=== PATIENT | male | born 1960 | race Caucasian/White ===

== ENCOUNTER → 2018-05-25 13:22 | Outpatient (CLI) | payer OTHER, SELFPAY | PROVIDERS: Visit Provider Family Medicine | DX: I87.2 Venous insufficiency (chronic) (peripheral) (principal); L97.525 Non-pressure chronic ulcer of other part of left foot with muscle involvement without evidence of necrosis; L97.322 Non-pressure chronic ulcer of left ankle with fat layer exposed; L97.522 Non-pressure chronic ulcer of other part of left foot with fat layer exposed; L97.812 Non-pressure chronic ulcer of other part of right lower leg with fat layer exposed | CPT/HCPCS: 97597; 97598; 99213 ==

== ENCOUNTER → 2018-05-27 14:31 | Outpatient (CLI) | payer OTHER, SELFPAY | PROVIDERS: Visit Provider Family Medicine | DX: I87.2 Venous insufficiency (chronic) (peripheral) (principal); L97.525 Non-pressure chronic ulcer of other part of left foot with muscle involvement without evidence of necrosis; L97.812 Non-pressure chronic ulcer of other part of right lower leg with fat layer exposed; L97.322 Non-pressure chronic ulcer of left ankle with fat layer exposed | CPT/HCPCS: 99213 ==

== ENCOUNTER → 2018-05-29 14:17 | Outpatient (CLI) | payer OTHER, SELFPAY | PROVIDERS: Visit Provider Family Medicine | DX: I87.2 Venous insufficiency (chronic) (peripheral) (principal); L97.822 Non-pressure chronic ulcer of other part of left lower leg with fat layer exposed; L97.312 Non-pressure chronic ulcer of right ankle with fat layer exposed | CPT/HCPCS: 29581 ==

== ENCOUNTER → 2018-06-01 13:13 | Outpatient (CLI) | payer OTHER, SELFPAY | PROVIDERS: Visit Provider Family Medicine | DX: I87.2 Venous insufficiency (chronic) (peripheral) (principal); L97.522 Non-pressure chronic ulcer of other part of left foot with fat layer exposed; L97.322 Non-pressure chronic ulcer of left ankle with fat layer exposed; L97.812 Non-pressure chronic ulcer of other part of right lower leg with fat layer exposed | CPT/HCPCS: 97597; 97598; 99212; 99213 ==

== ENCOUNTER → 2018-06-03 10:15 | Outpatient (CLI) | payer OTHER, SELFPAY | PROVIDERS: Visit Provider Family Medicine | DX: I87.2 Venous insufficiency (chronic) (peripheral) (principal); L97.811 Non-pressure chronic ulcer of other part of right lower leg limited to breakdown of skin; L97.521 Non-pressure chronic ulcer of other part of left foot limited to breakdown of skin | CPT/HCPCS: 29581 ==

== ENCOUNTER → 2018-06-05 10:11 | Outpatient (CLI) | payer OTHER, SELFPAY | PROVIDERS: Visit Provider Family Medicine | DX: I87.2 Venous insufficiency (chronic) (peripheral) (principal); L97.811 Non-pressure chronic ulcer of other part of right lower leg limited to breakdown of skin; L97.321 Non-pressure chronic ulcer of left ankle limited to breakdown of skin | CPT/HCPCS: 29581; 87070; 87075; 87077; 87186; 87205 ==

== ENCOUNTER → 2018-06-08 10:27 | Outpatient (CLI) | payer OTHER, SELFPAY | PROVIDERS: Visit Provider Podiatrist Primary Podiatric Medicine | DX: I87.2 Venous insufficiency (chronic) (peripheral) (principal); I89.0 Lymphedema, not elsewhere classified; E11.622 Type 2 diabetes mellitus with other skin ulcer; E11.40 Type 2 diabetes mellitus with diabetic neuropathy, unspecified; L97.521 Non-pressure chronic ulcer of other part of left foot limited to breakdown of skin; L97.821 Non-pressure chronic ulcer of other part of left lower leg limited to breakdown of skin; L97.811 Non-pressure chronic ulcer of other part of right lower leg limited to breakdown of skin | CPT/HCPCS: 99213 ==

== ENCOUNTER → 2018-06-10 11:03 | Outpatient (CLI) | payer OTHER, SELFPAY | PROVIDERS: Visit Provider Family Medicine | DX: I87.2 Venous insufficiency (chronic) (peripheral) (principal); L97.511 Non-pressure chronic ulcer of other part of right foot limited to breakdown of skin; L97.321 Non-pressure chronic ulcer of left ankle limited to breakdown of skin; L97.811 Non-pressure chronic ulcer of other part of right lower leg limited to breakdown of skin | CPT/HCPCS: 29581 ==

== ENCOUNTER → 2018-06-12 10:18 | Outpatient (CLI) | payer OTHER, SELFPAY | PROVIDERS: Visit Provider Family Medicine | DX: I87.2 Venous insufficiency (chronic) (peripheral) (principal); L97.812 Non-pressure chronic ulcer of other part of right lower leg with fat layer exposed; L97.322 Non-pressure chronic ulcer of left ankle with fat layer exposed; L97.522 Non-pressure chronic ulcer of other part of left foot with fat layer exposed | CPT/HCPCS: 99214 ==

== ENCOUNTER → 2018-06-15 15:06 | Outpatient (CLI) | payer OTHER, SELFPAY | PROVIDERS: Visit Provider Podiatrist Primary Podiatric Medicine | DX: I87.2 Venous insufficiency (chronic) (peripheral) (principal); L97.322 Non-pressure chronic ulcer of left ankle with fat layer exposed; L97.812 Non-pressure chronic ulcer of other part of right lower leg with fat layer exposed; L97.522 Non-pressure chronic ulcer of other part of left foot with fat layer exposed | CPT/HCPCS: 97597; 99201 ==

== ENCOUNTER → 2018-06-23 15:25 | Outpatient (CLI) | payer OTHER, SELFPAY | PROVIDERS: Visit Provider Family Medicine | DX: I87.2 Venous insufficiency (chronic) (peripheral) (principal); L97.212 Non-pressure chronic ulcer of right calf with fat layer exposed; L97.322 Non-pressure chronic ulcer of left ankle with fat layer exposed; L97.522 Non-pressure chronic ulcer of other part of left foot with fat layer exposed; D64.9 Anemia, unspecified | CPT/HCPCS: 99214; 99215 ==

== ENCOUNTER → 2018-06-24 15:35 | Outpatient (CLI) | payer OTHER, SELFPAY ==
[2018-06-24 18:19] LABS: Add Manual Diff / Slide Review NO; Basophils Absolute Auto 0 /uL (0-100); Basophils Percent Auto 0.3 % (0-2); Eosinophils Absolute Auto 100 /uL (0-450); Eosinophils Percent Auto 0.7 % (2-4); Hematocrit 38.1 % (41-53); Hemoglobin 11.7 g/dL (13.5-17.5); Lymphocytes Absolute Auto 900 /uL (1100-4500); Lymphocytes Percent Auto 8.3 % (25-40); Mean Corpuscular HGB Conc 30.8 % (30-36); Mean Corpuscular Hemoglobin 24.7 PG (26-34); Mean Corpuscular Volume 80.2 fL (80-100); Monocytes Absolute Auto 900 /uL (0-900); Monocytes Percent Auto 8.1 % (3-14); Neutrophils Absolute Auto 9400 /uL (1500-7000); Neutrophils Percent Auto 82.6 % (50-75); Platelet Count 335 X10^3/uL (150-400); Red Blood Cell Count 4.75 X10^6/uL (4.5-5.9); Red Cell Distribution Width 22.7 % (11.6-14.8); White Blood Cell Count 11.4 X10^3/uL (4.5-11.0)
[2018-06-24 18:55] LABS: Erythrocyte Sedimentation Rate 14 MM/HR (0-15)
[2018-06-24 19:08] LABS: HEMOLYSIS < 15 (0-50); Iron 27 ug/dL (49-181)
[2018-06-24 19:10] LABS: Hemoglobin A1C% w Est Avg Glu 7.1 % (4.0-6.0)
[2018-06-24 19:19] LABS: Percent Iron Saturation 10 % (20-50); Total Iron Binding Capacity 278 ug/dL (261-462); Transferrin 197 mg/dL (206-381)
[2018-06-24 19:32] LABS: Anisocytosis 2+
[2018-06-24 19:33] LABS: Hypochromasia 2+
[2018-06-24 19:45] LABS: Alanine Aminotransferase 21 IU/L (21-72); Albumin 3.8 g/dL (3.5-5.0); Albumin Globulin Ratio 0.9 (1.0-2.8); Alkaline Phosphatase 104 U/L (38-126); Aspartate Aminotransferase 15 IU/L (17-59); BUN Creatinine Ratio 19.2 (6-22); Bilirubin Total 0.4 mg/dL (0.2-1.3); Blood Urea Nitrogen 25 mg/dL (9-20); Calcium 8.5 mg/dL (8.4-10.2); Carbon Dioxide 30 mmol/L (22-32); Chloride 86 mmol/L (98-107); Estimated Glomerular Filt Rate 56.9 mL/min (>60); Globulin 4.4 g/dL (1.7-4.1); Glucose 314 mg/dL (70-100); HEMOLYSIS < 15 (0-50); Potassium 3.5 mmol/L (3.4-5.1); Sodium 133 mmol/L (137-145); Total Protein 8.2 g/dL (6.3-8.2)
[2018-06-24 19:46] LABS: Hepatitis B Surface Antigen NEGATIVE s/c (NEGATIVE)
[2018-06-24 20:05] LABS: C-Reactive Protein Quant 16.7 mg/dL (<1.0)
[2018-06-24 20:08] LABS: Hep C Virus Ab w/Reflex Quant REACTIVE s/c (NEGATIVE)
[2018-06-24 20:18] LABS: Ferritin 92.8 ng/mL (17.9-464)
[2018-06-24 20:31] LABS: Vitamin B12 864 pg/mL (239-931)
[2018-06-25 16:36] LABS: Reticulocyte Count, Percent 2.2 % (0.87-2.60)
[2018-06-27 14:59] LABS: Lyme SCREEN w/ Reflex IgG IgM < 0.90 (< 0.90)
[2018-07-01 16:32] LABS: Zinc 55 mcg/dL (60-130)
== END ==
PROVIDERS: PCP Family Medicine; Visit Provider Podiatrist Primary Podiatric Medicine
DX: L97.912 Non-pressure chronic ulcer of unspecified part of right lower leg with fat layer exposed (principal); L97.922 Non-pressure chronic ulcer of unspecified part of left lower leg with fat layer exposed
CPT/HCPCS: 36415; 80053; 82585; 82595; 82607; 82728; 83036; 83516; 83540; 83550; 84630; 85025; 85045; 85613; 85651; 86038; 86140; 86146; 86147; 86148; 86200; 86431; 86618; 86803; 87340; 87522

== ENCOUNTER → 2018-06-29 11:01 | Outpatient (CLI) | payer OTHER, SELFPAY | PROVIDERS: Visit Provider Podiatrist Primary Podiatric Medicine | DX: I87.2 Venous insufficiency (chronic) (peripheral) (principal); L97.212 Non-pressure chronic ulcer of right calf with fat layer exposed; L97.322 Non-pressure chronic ulcer of left ankle with fat layer exposed; L97.522 Non-pressure chronic ulcer of other part of left foot with fat layer exposed; L03.116 Cellulitis of left lower limb; D64.9 Anemia, unspecified | CPT/HCPCS: 97597; 97598 ==

== ENCOUNTER → 2018-07-06 11:02 | Outpatient (CLI) | payer OTHER, SELFPAY | PROVIDERS: Visit Provider Podiatrist Primary Podiatric Medicine | DX: I87.313 Chronic venous hypertension (idiopathic) with ulcer of bilateral lower extremity (principal); L97.812 Non-pressure chronic ulcer of other part of right lower leg with fat layer exposed; L97.822 Non-pressure chronic ulcer of other part of left lower leg with fat layer exposed; L97.522 Non-pressure chronic ulcer of other part of left foot with fat layer exposed | CPT/HCPCS: 99213; 99214 ==

== ENCOUNTER → 2018-07-09 10:28 | Outpatient (CLI) | payer OTHER, SELFPAY | PROVIDERS: Visit Provider Family Medicine | DX: I87.2 Venous insufficiency (chronic) (peripheral) (principal); L97.212 Non-pressure chronic ulcer of right calf with fat layer exposed; L97.322 Non-pressure chronic ulcer of left ankle with fat layer exposed; L97.522 Non-pressure chronic ulcer of other part of left foot with fat layer exposed; D64.9 Anemia, unspecified; R76.0 Raised antibody titer | CPT/HCPCS: 11104; 11105; 99215 ==

== ENCOUNTER → 2018-07-16 11:02 | Outpatient (CLI) | payer OTHER, SELFPAY | PROVIDERS: Visit Provider Family Medicine | DX: I87.2 Venous insufficiency (chronic) (peripheral) (principal); L97.212 Non-pressure chronic ulcer of right calf with fat layer exposed; L97.322 Non-pressure chronic ulcer of left ankle with fat layer exposed; L97.511 Non-pressure chronic ulcer of other part of right foot limited to breakdown of skin; R76.0 Raised antibody titer; L03.116 Cellulitis of left lower limb | CPT/HCPCS: 99214 ==

== ENCOUNTER → 2018-07-23 10:18 | Outpatient (CLI) | payer OTHER, SELFPAY | PROVIDERS: Visit Provider Family Medicine | DX: I87.2 Venous insufficiency (chronic) (peripheral) (principal); L97.212 Non-pressure chronic ulcer of right calf with fat layer exposed; L97.322 Non-pressure chronic ulcer of left ankle with fat layer exposed; L97.522 Non-pressure chronic ulcer of other part of left foot with fat layer exposed; D64.9 Anemia, unspecified; R76.0 Raised antibody titer; L03.116 Cellulitis of left lower limb; E11.622 Type 2 diabetes mellitus with other skin ulcer; E11.40 Type 2 diabetes mellitus with diabetic neuropathy, unspecified | CPT/HCPCS: 99213 ==

== ENCOUNTER → 2018-07-30 09:20 | Outpatient (CLI) | payer OTHER, SELFPAY | PROVIDERS: Visit Provider Family Medicine | DX: I87.2 Venous insufficiency (chronic) (peripheral) (principal); L97.212 Non-pressure chronic ulcer of right calf with fat layer exposed; L97.322 Non-pressure chronic ulcer of left ankle with fat layer exposed; L97.522 Non-pressure chronic ulcer of other part of left foot with fat layer exposed; D46.9 Myelodysplastic syndrome, unspecified; R76.0 Raised antibody titer | CPT/HCPCS: 87070; 87075; 87077; 87147; 87186; 87205; 99213; 99214 ==

== ENCOUNTER → 2018-08-11 14:26 | Outpatient (CLI) | payer OTHER, SELFPAY | PROVIDERS: Visit Provider Family Medicine | DX: I87.2 Venous insufficiency (chronic) (peripheral) (principal); L97.522 Non-pressure chronic ulcer of other part of left foot with fat layer exposed; L97.822 Non-pressure chronic ulcer of other part of left lower leg with fat layer exposed; L97.812 Non-pressure chronic ulcer of other part of right lower leg with fat layer exposed; A49.02 Methicillin resistant Staphylococcus aureus infection, unspecified site; M79.604 Pain in right leg; M79.605 Pain in left leg | CPT/HCPCS: 99214 ==

== ENCOUNTER → 2018-08-21 13:10 | Outpatient (CLI) | payer OTHER, SELFPAY | PROVIDERS: Visit Provider Family Medicine | DX: I87.2 Venous insufficiency (chronic) (peripheral) (principal); L97.212 Non-pressure chronic ulcer of right calf with fat layer exposed; L97.322 Non-pressure chronic ulcer of left ankle with fat layer exposed; L97.522 Non-pressure chronic ulcer of other part of left foot with fat layer exposed; D64.9 Anemia, unspecified; R76.0 Raised antibody titer | CPT/HCPCS: 99212; 99213 ==

== ENCOUNTER → 2018-08-31 15:12 | Outpatient (CLI) | payer OTHER, SELFPAY | PROVIDERS: Visit Provider Family Medicine | DX: I87.2 Venous insufficiency (chronic) (peripheral) (principal); L97.821 Non-pressure chronic ulcer of other part of left lower leg limited to breakdown of skin; L97.811 Non-pressure chronic ulcer of other part of right lower leg limited to breakdown of skin; L97.521 Non-pressure chronic ulcer of other part of left foot limited to breakdown of skin; D64.9 Anemia, unspecified; R76.0 Raised antibody titer | CPT/HCPCS: 87070; 87075; 87077; 87186; 87205; 99213; 99214 ==

== ENCOUNTER → 2018-09-08 14:02 | Outpatient (CLI) | payer OTHER, SELFPAY | PROVIDERS: Visit Provider Podiatrist Primary Podiatric Medicine | DX: I87.2 Venous insufficiency (chronic) (peripheral) (principal); L97.821 Non-pressure chronic ulcer of other part of left lower leg limited to breakdown of skin; L97.811 Non-pressure chronic ulcer of other part of right lower leg limited to breakdown of skin; L97.521 Non-pressure chronic ulcer of other part of left foot limited to breakdown of skin; D64.9 Anemia, unspecified | CPT/HCPCS: 97602; 99213 ==

== ENCOUNTER → 2018-09-17 14:57 | Outpatient (CLI) | payer OTHER, SELFPAY | PROVIDERS: Visit Provider Family Medicine | DX: I87.2 Venous insufficiency (chronic) (peripheral) (principal); L97.821 Non-pressure chronic ulcer of other part of left lower leg limited to breakdown of skin; L97.811 Non-pressure chronic ulcer of other part of right lower leg limited to breakdown of skin; L97.521 Non-pressure chronic ulcer of other part of left foot limited to breakdown of skin; M79.661 Pain in right lower leg; M79.662 Pain in left lower leg; M79.672 Pain in left foot; R76.0 Raised antibody titer; M79.18 Myalgia, other site; R53.83 Other fatigue; E11.40 Type 2 diabetes mellitus with diabetic neuropathy, unspecified; B96.5 Pseudomonas (aeruginosa) (mallei) (pseudomallei) as the cause of diseases classified elsewhere | CPT/HCPCS: 87070; 87075; 87077; 87186; 87205; 99212; 99214 ==

== ENCOUNTER → 2018-09-29 14:18 | Outpatient (CLI) | payer OTHER, SELFPAY | PROVIDERS: Visit Provider Family Medicine | DX: I87.2 Venous insufficiency (chronic) (peripheral) (principal); L97.821 Non-pressure chronic ulcer of other part of left lower leg limited to breakdown of skin; L97.811 Non-pressure chronic ulcer of other part of right lower leg limited to breakdown of skin; L97.521 Non-pressure chronic ulcer of other part of left foot limited to breakdown of skin; R76.0 Raised antibody titer; M79.661 Pain in right lower leg; M79.662 Pain in left lower leg; M79.672 Pain in left foot | CPT/HCPCS: 99213; 99215 ==

== ENCOUNTER → 2018-10-13 09:56 | Outpatient (CLI) | payer OTHER, SELFPAY | PROVIDERS: Visit Provider Family Medicine | DX: I87.2 Venous insufficiency (chronic) (peripheral) (principal); I89.0 Lymphedema, not elsewhere classified; L97.521 Non-pressure chronic ulcer of other part of left foot limited to breakdown of skin; L97.821 Non-pressure chronic ulcer of other part of left lower leg limited to breakdown of skin; L97.811 Non-pressure chronic ulcer of other part of right lower leg limited to breakdown of skin; L08.9 Local infection of the skin and subcutaneous tissue, unspecified; B96.5 Pseudomonas (aeruginosa) (mallei) (pseudomallei) as the cause of diseases classified elsewhere; M79.661 Pain in right lower leg; M79.662 Pain in left lower leg; I28.8 Other diseases of pulmonary vessels; R53.82 Chronic fatigue, unspecified | CPT/HCPCS: 29581; 99203 ==

== ENCOUNTER → 2018-10-27 14:24 | Outpatient (CLI) | payer OTHER, SELFPAY | PROVIDERS: Visit Provider Family Medicine | DX: I87.2 Venous insufficiency (chronic) (peripheral) (principal); L97.525 Non-pressure chronic ulcer of other part of left foot with muscle involvement without evidence of necrosis; L97.821 Non-pressure chronic ulcer of other part of left lower leg limited to breakdown of skin; L97.811 Non-pressure chronic ulcer of other part of right lower leg limited to breakdown of skin; M79.661 Pain in right lower leg; M79.662 Pain in left lower leg; M79.672 Pain in left foot; R60.0 Localized edema; B96.5 Pseudomonas (aeruginosa) (mallei) (pseudomallei) as the cause of diseases classified elsewhere | CPT/HCPCS: 87070; 87075; 87077; 87186; 87205; 99213; 99215 ==

== ENCOUNTER → 2018-11-03 13:06 | Outpatient (CLI) | payer OTHER, SELFPAY | PROVIDERS: Visit Provider Family Medicine | DX: I87.2 Venous insufficiency (chronic) (peripheral) (principal); L97.515 Non-pressure chronic ulcer of other part of right foot with muscle involvement without evidence of necrosis; L97.821 Non-pressure chronic ulcer of other part of left lower leg limited to breakdown of skin; L97.811 Non-pressure chronic ulcer of other part of right lower leg limited to breakdown of skin; I89.0 Lymphedema, not elsewhere classified; R76.0 Raised antibody titer; L08.9 Local infection of the skin and subcutaneous tissue, unspecified; B96.5 Pseudomonas (aeruginosa) (mallei) (pseudomallei) as the cause of diseases classified elsewhere; M79.672 Pain in left foot; M79.661 Pain in right lower leg; M79.662 Pain in left lower leg | CPT/HCPCS: 99213; 99214 ==

== ENCOUNTER → 2018-11-10 09:55 | Outpatient (CLI) | payer OTHER, SELFPAY | PROVIDERS: Visit Provider Family Medicine | DX: I87.2 Venous insufficiency (chronic) (peripheral) (principal); L97.522 Non-pressure chronic ulcer of other part of left foot with fat layer exposed; L97.212 Non-pressure chronic ulcer of right calf with fat layer exposed; L97.323 Non-pressure chronic ulcer of left ankle with necrosis of muscle; L08.9 Local infection of the skin and subcutaneous tissue, unspecified; B96.5 Pseudomonas (aeruginosa) (mallei) (pseudomallei) as the cause of diseases classified elsewhere; I82.409 Acute embolism and thrombosis of unspecified deep veins of unspecified lower extremity; J44.9 Chronic obstructive pulmonary disease, unspecified | CPT/HCPCS: 99213 ==

== ENCOUNTER → 2018-11-17 13:50 | Outpatient (CLI) | payer OTHER, SELFPAY | PROVIDERS: Visit Provider Family Medicine | DX: I87.2 Venous insufficiency (chronic) (peripheral) (principal); L97.212 Non-pressure chronic ulcer of right calf with fat layer exposed; L97.323 Non-pressure chronic ulcer of left ankle with necrosis of muscle; L97.522 Non-pressure chronic ulcer of other part of left foot with fat layer exposed; R76.0 Raised antibody titer; I89.0 Lymphedema, not elsewhere classified; L08.9 Local infection of the skin and subcutaneous tissue, unspecified; B96.5 Pseudomonas (aeruginosa) (mallei) (pseudomallei) as the cause of diseases classified elsewhere | CPT/HCPCS: 29580; 99213 ==

== ENCOUNTER → 2018-11-30 17:27 | Oncology outpatient (ONC) | payer OTHER, SELFPAY ==
[2018-11-30 16:21] VITALS: BP 154/80; PULSE 100; RESP 20; TEMP 36.9; O2SAT 99
--- NOTE | 2018-11-30 16:25 | P.CONONC_ITS ---
History of Present Illness - Data of Consult Patient: new to practice Consult date: 11/30/18 Requesting Physician: Self referred. - Consult Narrative Reason for consult: Recurrent pulmonary embolism and Lower leg DVT Narrative: Melida Melchor is a 58 year old male with extensive medical problems most notable for diabetes, obesity, sleep apnea syndrome, bilateral lower extremity skin lesions venous stasis and exposure of underlying tendons. In 2006, he had history of CHF. He is currently undergoing would care at [facility]. He himself referred to our [facility] for continued care of his known recurrent bilateral pulmonary embolism and recurrent lower extremity deep venous thrombosis. According to patient, his pulmonary embolism and deep venous thrombosis were diagnosed in 1994. During the ensuing 4-5 years, patient experienced recurrence of the venous thromboembolism about 4 times. The patient has been on continuous anticoagulation with warfarin. Patient said that he has an immune disorder called fibromyalgia and has been followed by level vial inspector and tester Dr. Sexton. The patient is now using high-dose steroids prednisone 60 mg once a day which is being tapered. Patient said that since March of 2018, patient has developed worsening shortness of breath especially upon exertion. After he was put on the steroids, patient said that the energy level has improved significantly. Patient said that he has undergone extensive workup as far as lung and heart disease is concerned. According to patient no abnormal findings. CC: Denise Go MD Home Medications and Allergies Home Medications Medication Instructions Recorded Confirmed Type Vitamin B-6 100 mg DAILY 11/30/18 11/30/18 History ascorbic acid (vitamin C) [Vitamin 500 mg DAILY 11/30/18 11/30/18 History C] cyanocobalamin (vitamin B-12) 1,000 mcg DAILY 11/30/18 11/30/18 History [Vitamin B-12] duloxetine 30 mg PO BID 11/30/18 11/30/18 History folic acid 1 mg BID 11/30/18 11/30/18 History gentamicin TOPICAL DAILY 11/30/18 History hydrochlorothiazide 50 mg DAILY 11/30/18 11/30/18 History hydromorphone 4 mg PO Q6H PRN 11/30/18 11/30/18 History insulin NPH and regular human 50 unit SUBCUT BID 11/30/18 11/30/18 History liraglutide [Victoza 2-Joesph] 0.6 mg SUBCUT DAILY 11/30/18 11/30/18 History loratadine 10 mg DAILY 11/30/18 11/30/18 History magnesium oxide 400 mg PO DAILY 11/30/18 11/30/18 History metformin 1,000 mg BID 11/30/18 11/30/18 History minocycline 100 mg PO BID 11/30/18 11/30/18 History modafinil 400 mg PO DAILY 11/30/18 11/30/18 History morphine 15 mg PO Q12H PRN 11/30/18 11/30/18 History morphine 30 mg PO Q8H PRN 11/30/18 11/30/18 History multivitamin 1 tab DAILY 11/30/18 11/30/18 History polyethylene glycol 3350 17 g PO DAILY 11/30/18 11/30/18 History prednisone 40 mg PO DAILY 11/30/18 11/30/18 History warfarin 7.5 mg PO 3XW 11/30/18 11/30/18 History Medical History - Medical, Surgical, Family History Medical History: Medical History (Last Updated 11/30/18 @ 16:43 by Denise Go MD) Chronic deep vein thrombosis (DVT) Chronic pulmonary embolism Diabetes Fibromyalgia History of deep venous thrombosis (DVT) of distal vein of right lower extremity History of DVT of lower extremity Hypertension Sleep apnea Surgical History: Surgical History (Last Updated 11/30/18 @ 16:42 by Denise Go MD) History of appendectomy History of tonsillectomy Family History: Family History (Last Updated 11/30/18 @ 16:43 by Denise Go MD) Father Heart attack Review of Systems - Patient Self-Reported Symptoms SR Constitution: Fatigue/Malaise SR Cardiovascular issues: Extreme swelling SR Genitourinary issues: Sexual difficulties SR Neuro issues: Difficulty balancing All systems PM: reviewed and no additional remarkable complaints except as stated Exam Vital signs: Vital Signs Temp Pulse Resp BP Pulse Ox 11/30/18 16:21 98.4 F 100 H 20 154/80 H 99 Intake and Output 11/30/18 11/30/18 11/30/18 07:59 15:59 23:59 Other: Weight 122.6 kg Patient Weight 11/30/18 23:59 Weight 122.6 kg Narrative: ECOG 1 - Constitutional positive no acute distress, positive morbidly obese, positive cooperative - Routine HEENT Exam Head: Present: normocephalic, atraumatic Eye: Present: EOMI, PERRL, normal accommodation. Absent: conjunctival icterus, scleral injection ENT: Present: mucous membranes moist - Routine Neck Exam Present: supple, full ROM. Absent: JVD, lymphadenopathy, thyromegaly - Routine Chest/Breast/Axilla Exam Axillae: Absent: lymphadenopathy - Routine Respiratory Exam Present: decreased breath sounds. Absent: accessory muscle use, rales, respiratory distress, rhonchi, stridor, wheezes - Routine Cardiovascular Exam Present: RRR, S1, S2. Absent: murmur, gallop, rubs - Routine Abdominal Exam Present: soft. Absent: tenderness, distended, organomegaly - Routine Extremities Exam Comments: Both lower extremities were wrapped up in gauze. Patient currently is being taking care of in our wound care center - Routine Neurological Exam Present: alert, oriented X3, CN II-XII intact. Absent: sensory deficit, motor deficit - Routine Psychiatric Exam Present: normal affect Assessment and Plan (1) Chronic pulmonary embolism Overview: 58 year old with chronic and recurrent pulmonary embolism and lower extremity deep venous thrombosis. He is now on chronic anticoagulation with Coumadin. Previous workup for hypercoagulable status is not available for review today. Contributing factors including obesity, sleep apnea, diabetes, and chronic venous stasis of the lower extremities. Assessment: Patient has chronic venous thromboembolism and clearly he will need lifelong anticoagulation. Clinically, he has a significant exertional shortness of breath. Extensive workup has been done without identify any apparent etiologies. In my opinion, the patient will benefit from seeing a service advocate contact in terms of possible treatment for pulmonary hypertension. Patient voiced understanding. Plan: 1. Continue anticoagulation with Coumadin, goal of INR 2-3 under the care of Robyn Shelley RN/zeina Finley MD for home monitoring. 2. CBC, CMP, Iron panel, Ferritin 3. Request previous Medical Records 4. Refer to cardiology for evaluation and treatment 5. RTC in three weeks (2) Chronic deep vein thrombosis (DVT) See above
[2018-11-30 17:54] LABS: Alanine Aminotransferase 22 IU/L (21-72); Albumin 4.1 g/dL (3.5-5.0); Albumin Globulin Ratio 1.1 (1.0-2.8); Alkaline Phosphatase 84 U/L (38-126); Aspartate Aminotransferase 17 IU/L (17-59); BUN Creatinine Ratio 29.1 (6-22); Bilirubin Total 0.4 mg/dL (0.2-1.3); Blood Urea Nitrogen 32 mg/dL (9-20); Calcium 9.1 mg/dL (8.4-10.2); Carbon Dioxide 35 mmol/L (22-32); Chloride 92 mmol/L (98-107); Estimated Glomerular Filt Rate > 60.0 mL/min (>60); Globulin 3.8 g/dL (1.7-4.1); Glucose 270 mg/dL (70-100); HEMOLYSIS < 15 (0-50); Potassium 4.3 mmol/L (3.4-5.1); Sodium 137 mmol/L (137-145); Total Protein 7.9 g/dL (6.3-8.2)
[2018-11-30 18:01] LABS: Add Manual Diff / Slide Review NO; Basophils Absolute Auto 100 /uL (0-100); Basophils Percent Auto 0.5 % (0-2); Eosinophils Absolute Auto 0 /uL (0-450); Eosinophils Percent Auto 0.1 % (2-4); Hemoglobin 10.1 g/dL (13.5-17.5); Iron 20 ug/dL (49-181); Lymphocytes Absolute Auto 1400 /uL (1100-4500); Lymphocytes Percent Auto 11.8 % (25-40); Mean Corpuscular HGB Conc 28.8 % (30-36); Mean Corpuscular Hemoglobin 19.1 PG (26-34); Mean Corpuscular Volume 66.3 fL (80-100); Monocytes Absolute Auto 800 /uL (0-900); Monocytes Percent Auto 6.7 % (3-14); Neutrophils Absolute Auto 9400 /uL (1500-7000); Neutrophils Percent Auto 80.9 % (50-75); Platelet Count 226 X10^3/uL (150-400); Red Blood Cell Count 5.27 X10^6/uL (4.5-5.9); White Blood Cell Count 11.6 X10^3/uL (4.5-11.0)
[2018-11-30 18:30] LABS: Ferritin 17.4 ng/mL (17.9-464)
[2018-11-30 18:40] LABS: Anisocytosis 3+
[2018-11-30 18:41] LABS: Hypochromasia 2+
[2018-11-30 18:42] LABS: Poikilocytosis 1+
--- NOTE | 2019-01-28 13:40 | ONC.SCHED ---
No records at [facility]
== END ==
PROVIDERS: Visit Provider Internal Medicine Hematology & Oncology
DX: I27.82 Chronic pulmonary embolism (principal); I82.509 Chronic embolism and thrombosis of unspecified deep veins of unspecified lower extremity; R06.02 Shortness of breath; I87.8 Other specified disorders of veins; I10 Essential (primary) hypertension; E11.9 Type 2 diabetes mellitus without complications; E66.9 Obesity, unspecified; G47.30 Sleep apnea, unspecified; M79.7 Fibromyalgia; Z79.01 Long term (current) use of anticoagulants; Z79.4 Long term (current) use of insulin
CPT/HCPCS: 36415; 80053; 82728; 83540; 85025; 99204; 99214

== ENCOUNTER → 2018-12-01 13:24 | Outpatient (CLI) | payer OTHER, SELFPAY | PROVIDERS: Visit Provider Family Medicine | DX: I87.2 Venous insufficiency (chronic) (peripheral) (principal); L97.219 Non-pressure chronic ulcer of right calf with unspecified severity; L97.329 Non-pressure chronic ulcer of left ankle with unspecified severity; L97.529 Non-pressure chronic ulcer of other part of left foot with unspecified severity; L08.9 Local infection of the skin and subcutaneous tissue, unspecified; I89.0 Lymphedema, not elsewhere classified; B96.5 Pseudomonas (aeruginosa) (mallei) (pseudomallei) as the cause of diseases classified elsewhere | CPT/HCPCS: 29580; 99213 ==

== ENCOUNTER → 2018-12-08 09:58 | Outpatient (CLI) | payer OTHER, SELFPAY | PROVIDERS: Visit Provider Family Medicine | DX: I87.2 Venous insufficiency (chronic) (peripheral) (principal); L97.212 Non-pressure chronic ulcer of right calf with fat layer exposed; L97.323 Non-pressure chronic ulcer of left ankle with necrosis of muscle; L97.522 Non-pressure chronic ulcer of other part of left foot with fat layer exposed | CPT/HCPCS: 99213; 99215 ==

== ENCOUNTER → 2018-12-15 13:21 | Outpatient (CLI) | payer OTHER, SELFPAY | PROVIDERS: Visit Provider Family Medicine | DX: I87.2 Venous insufficiency (chronic) (peripheral) (principal); L97.525 Non-pressure chronic ulcer of other part of left foot with muscle involvement without evidence of necrosis; L97.528 Non-pressure chronic ulcer of other part of left foot with other specified severity; L97.818 Non-pressure chronic ulcer of other part of right lower leg with other specified severity; R60.0 Localized edema; R76.0 Raised antibody titer; B96.5 Pseudomonas (aeruginosa) (mallei) (pseudomallei) as the cause of diseases classified elsewhere | CPT/HCPCS: 99213; 99215 ==

== ENCOUNTER → 2018-12-29 10:43 | Outpatient (CLI) | payer OTHER, SELFPAY | PROVIDERS: Visit Provider Family Medicine | DX: I87.2 Venous insufficiency (chronic) (peripheral) (principal); E11.622 Type 2 diabetes mellitus with other skin ulcer; L97.525 Non-pressure chronic ulcer of other part of left foot with muscle involvement without evidence of necrosis; L97.821 Non-pressure chronic ulcer of other part of left lower leg limited to breakdown of skin; L97.811 Non-pressure chronic ulcer of other part of right lower leg limited to breakdown of skin; I89.0 Lymphedema, not elsewhere classified; R60.0 Localized edema; L08.9 Local infection of the skin and subcutaneous tissue, unspecified; B96.5 Pseudomonas (aeruginosa) (mallei) (pseudomallei) as the cause of diseases classified elsewhere; E11.40 Type 2 diabetes mellitus with diabetic neuropathy, unspecified | CPT/HCPCS: 29581; 99213 ==

== ENCOUNTER → 2019-01-12 11:02 | Outpatient (CLI) | payer OTHER, SELFPAY | PROVIDERS: Visit Provider Family Medicine | DX: I87.2 Venous insufficiency (chronic) (peripheral) (principal); L97.522 Non-pressure chronic ulcer of other part of left foot with fat layer exposed; L97.811 Non-pressure chronic ulcer of other part of right lower leg limited to breakdown of skin; L97.821 Non-pressure chronic ulcer of other part of left lower leg limited to breakdown of skin; L97.525 Non-pressure chronic ulcer of other part of left foot with muscle involvement without evidence of necrosis; R60.0 Localized edema | CPT/HCPCS: 29581; 99213 ==

== ENCOUNTER → 2019-01-26 13:17 | Outpatient (CLI) | payer OTHER, SELFPAY | PROVIDERS: Visit Provider Family Medicine | DX: I87.2 Venous insufficiency (chronic) (peripheral) (principal); E11.621 Type 2 diabetes mellitus with foot ulcer; L97.521 Non-pressure chronic ulcer of other part of left foot limited to breakdown of skin; L97.511 Non-pressure chronic ulcer of other part of right foot limited to breakdown of skin; L97.525 Non-pressure chronic ulcer of other part of left foot with muscle involvement without evidence of necrosis; R60.0 Localized edema; E11.40 Type 2 diabetes mellitus with diabetic neuropathy, unspecified | CPT/HCPCS: 29581 ==

== ENCOUNTER → 2019-02-09 13:59 | Outpatient (CLI) | payer OTHER, SELFPAY | PROVIDERS: Visit Provider Family Medicine | DX: I87.2 Venous insufficiency (chronic) (peripheral) (principal); L97.521 Non-pressure chronic ulcer of other part of left foot limited to breakdown of skin; L97.821 Non-pressure chronic ulcer of other part of left lower leg limited to breakdown of skin; L97.811 Non-pressure chronic ulcer of other part of right lower leg limited to breakdown of skin; R76.0 Raised antibody titer; L88 Pyoderma gangrenosum; R60.0 Localized edema | CPT/HCPCS: 99214; 99215 ==

== ENCOUNTER → 2019-02-09 16:23 | Outpatient (CLI) | payer OTHER, SELFPAY ==
[2019-02-09 17:24] LABS: Add Manual Diff / Slide Review NO; Basophils Absolute Auto 0 /uL (0-100); Basophils Percent Auto 0.3 % (0-2); Eosinophils Absolute Auto 0 /uL (0-450); Eosinophils Percent Auto 0.4 % (2-4); Hemoglobin 11.2 g/dL (13.5-17.5); Lymphocytes Absolute Auto 1300 /uL (1100-4500); Lymphocytes Percent Auto 10.8 % (25-40); Mean Corpuscular HGB Conc 29.4 % (30-36); Mean Corpuscular Hemoglobin 22.2 PG (26-34); Mean Corpuscular Volume 75.6 fL (80-100); Monocytes Absolute Auto 900 /uL (0-900); Monocytes Percent Auto 7.6 % (3-14); Neutrophils Absolute Auto 9800 /uL (1500-7000); Neutrophils Percent Auto 80.9 % (50-75); Platelet Count 252 X10^3/uL (150-400); Red Blood Cell Count 5.03 X10^6/uL (4.5-5.9); Red Cell Distribution Width 23.4 % (11.6-14.8); White Blood Cell Count 12.1 X10^3/uL (4.5-11.0)
[2019-02-09 17:39] LABS: Prothrombin Time 53.4 SECONDS (10.1-12.7)
[2019-02-09 17:40] LABS: INR 4.5 (0.9-1.3)
[2019-02-09 17:43] LABS: Alanine Aminotransferase 25 IU/L (<50); Albumin Globulin Ratio 1.3 (1.0-2.8); Alkaline Phosphatase 77 U/L (38-126); Aspartate Aminotransferase 21 IU/L (17-59); BUN Creatinine Ratio 26.4 (6-22); Bilirubin Total 0.5 mg/dL (0.2-1.3); Blood Urea Nitrogen 29 mg/dL (9-20); Calcium 9.6 mg/dL (8.4-10.2); Carbon Dioxide 37 mmol/L (22-32); Chloride 92 mmol/L (98-107); Estimated Glomerular Filt Rate > 60.0 mL/min (>60); Globulin 3.2 g/dL (1.7-4.1); Glucose 153 mg/dL (70-100); HEMOLYSIS < 15 (0-50); Potassium 5.1 mmol/L (3.4-5.1); Sodium 137 mmol/L (137-145); Total Protein 7.2 g/dL (6.3-8.2)
[2019-02-09 17:52] LABS: Anisocytosis 3+; Hypochromasia 1+; Microcytosis 1+; Poikilocytosis 1+; Polychromasia 1+
[2019-02-09 17:54] LABS: Erythrocyte Sedimentation Rate 11 MM/HR (0-15)
[2019-02-09 18:25] LABS: C-Reactive Protein Quant 6.8 mg/dL (<1.0)
[2019-02-11 21:55] LABS: Albumin 3.5 g/dL (3.8-4.8); Alpha 1 Globulin 0.4 g/dL (0.2-0.3); Alpha 2 Globulin 0.9 g/dL (0.5-0.9); Beta 1 Globulin 0.5 g/dL (0.4-0.6); Gamma Globulin 1.4 g/dL (0.8-1.7); Protein, Total 7.1 g/dL (6.1-8.1)
== END ==
PROVIDERS: Visit Provider Family Medicine
DX: R77.1 Abnormality of globulin (principal)
CPT/HCPCS: 36415; 80053; 84155; 84165; 85025; 85610; 85651; 86140

== ENCOUNTER → 2019-02-25 13:15 | Outpatient (CLI) | payer OTHER, SELFPAY | PROVIDERS: Visit Provider Family Medicine | DX: I87.2 Venous insufficiency (chronic) (peripheral) (principal); L97.521 Non-pressure chronic ulcer of other part of left foot limited to breakdown of skin; L97.821 Non-pressure chronic ulcer of other part of left lower leg limited to breakdown of skin; L97.811 Non-pressure chronic ulcer of other part of right lower leg limited to breakdown of skin; R76.0 Raised antibody titer; L88 Pyoderma gangrenosum; R60.0 Localized edema | CPT/HCPCS: 29581; 99213 ==

== ENCOUNTER → 2019-03-09 14:06 | Outpatient (CLI) | payer OTHER, SELFPAY | PROVIDERS: Visit Provider Family Medicine | DX: I87.2 Venous insufficiency (chronic) (peripheral) (principal); L97.525 Non-pressure chronic ulcer of other part of left foot with muscle involvement without evidence of necrosis; L97.821 Non-pressure chronic ulcer of other part of left lower leg limited to breakdown of skin; L97.811 Non-pressure chronic ulcer of other part of right lower leg limited to breakdown of skin | CPT/HCPCS: 99214 ==

== ENCOUNTER → 2019-03-09 16:59 | Outpatient (CLI) | payer OTHER, SELFPAY ==
--- NOTE | 2019-03-09 | DI.MRI.S_ITS ---
PROCEDURE: MR SHOULDER LT WO CON INDICATIONS: rotator cuff tear or rupture TECHNIQUE: Noncontrast oblique coronal T2 fast spin echo with fat saturation, oblique sagittal T1 spin echo and T2 fast spin echo with fat saturation, axial T1 spin echo and T2 fast spin echo with fat saturation through the shoulder. COMPARISON: None. FINDINGS: Image quality: Excellent. Rotator cuff: Full-thickness tear of the supraspinatus and infraspinatus tendons. This measures at least 4.9 cm in AP dimension as seen on sagittal image 14/10. Mild teres minor tendinopathy. Subscapularis tendinopathy and thickening with partial thickness articular sided tear. Fatty infiltration and atrophy of the supraspinatus, infraspinatus and teres minor muscles. There is also fatty infiltration of the subscapularis muscle Bones and bursae: No bone marrow contusions or fractures. There is marrow edema at the posterosuperior humeral head on image 16/10 which could be reactive to degenerative changes although cannot entirely exclude marrow contusion if there is history of recent trauma. Moderate acromioclavicular joint degeneration. Acromion demonstrates conventional anatomy, without an os acromiale. Capsule and soft tissues: Circumferential blunted and diminutive appearance of the labrum presumably advanced degeneration versus chronic tear. No definite intrasubstance fluid signal abnormality however there is pronounced posterior subluxation of the humeral head relative to the glenoid in keeping with microinstability Long head of the biceps tendon intact, although there is early/mild medial subluxation. Partial obliteration of the subcoracoid fat. Moderate joint effusion Coracohumeral ligament intact. IMPRESSION: Large full-thickness tear of the supraspinatus and infraspinatus tendons. Partial-thickness articular sided tear the subscapularis tendon with background tendinopathy Teres minor tendinopathy Diffuse fatty infiltration of the rotator cuff muscles, and atrophy of the supraspinatus, infraspinatus and teres minor. Circumferential degeneration and/or chronic tear of the labrum, with posterior subluxed appearance of the humeral head relative to glenoid in keeping with microinstability Mild/early medial subluxation long head biceps tendon Dictated by: Juan Luis Wallace M.D. on 03/11/2019 at 8:20 Approved by: Juan Luis Wallace M.D. on 03/11/2019 at 8:33
== END ==
PROVIDERS: Visit Provider Family Medicine
DX: M75.122 Complete rotator cuff tear or rupture of left shoulder, not specified as traumatic (principal); M19.012 Primary osteoarthritis, left shoulder; M25.412 Effusion, left shoulder; I87.2 Venous insufficiency (chronic) (peripheral); L97.525 Non-pressure chronic ulcer of other part of left foot with muscle involvement without evidence of necrosis; L97.821 Non-pressure chronic ulcer of other part of left lower leg limited to breakdown of skin; L97.811 Non-pressure chronic ulcer of other part of right lower leg limited to breakdown of skin
CPT/HCPCS: 73221; 99214

== ENCOUNTER → 2019-03-30 14:16 | Outpatient (CLI) | payer OTHER, SELFPAY | PROVIDERS: Visit Provider Family Medicine | DX: I87.2 Venous insufficiency (chronic) (peripheral) (principal); L97.321 Non-pressure chronic ulcer of left ankle limited to breakdown of skin; L97.211 Non-pressure chronic ulcer of right calf limited to breakdown of skin; L97.521 Non-pressure chronic ulcer of other part of left foot limited to breakdown of skin; R76.0 Raised antibody titer; L88 Pyoderma gangrenosum | CPT/HCPCS: 99213; 99214 ==

== ENCOUNTER → 2019-04-13 13:21 | Outpatient (CLI) | payer OTHER, SELFPAY | PROVIDERS: Referring Provider Family Medicine; Visit Provider Family Medicine | DX: I87.2 Venous insufficiency (chronic) (peripheral) (principal); L97.521 Non-pressure chronic ulcer of other part of left foot limited to breakdown of skin; L97.821 Non-pressure chronic ulcer of other part of left lower leg limited to breakdown of skin; L97.811 Non-pressure chronic ulcer of other part of right lower leg limited to breakdown of skin; R60.0 Localized edema | CPT/HCPCS: 99214 ==

== ENCOUNTER → 2019-04-27 13:17 | Outpatient (CLI) | payer OTHER, SELFPAY ==
--- NOTE | 2019-05-03 15:07 | ONC.MSW ---
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 Forwarded to schedulers for next available routine consult visit time f/u.
== END ==
PROVIDERS: PCP Family Medicine; Referring Provider Family Medicine; Visit Provider Family Medicine
DX: I87.2 Venous insufficiency (chronic) (peripheral) (principal); L97.521 Non-pressure chronic ulcer of other part of left foot limited to breakdown of skin; L97.321 Non-pressure chronic ulcer of left ankle limited to breakdown of skin; L88 Pyoderma gangrenosum; R11.0 Nausea; R60.0 Localized edema
CPT/HCPCS: 99212; 99213

== ENCOUNTER → 2019-05-17 13:32 | Outpatient (CLI) | payer OTHER, SELFPAY | PROVIDERS: PCP Family Medicine; Referring Provider Family Medicine; Visit Provider Family Medicine | DX: I87.2 Venous insufficiency (chronic) (peripheral) (principal); L97.521 Non-pressure chronic ulcer of other part of left foot limited to breakdown of skin; L97.211 Non-pressure chronic ulcer of right calf limited to breakdown of skin; L97.321 Non-pressure chronic ulcer of left ankle limited to breakdown of skin; I89.0 Lymphedema, not elsewhere classified; L88 Pyoderma gangrenosum; R60.0 Localized edema | CPT/HCPCS: 99213; 99214 ==